=== PATIENT | male | born 1970 | race Caucasian/White ===

== ENCOUNTER 2018-04-21 11:35 | Emergency (ER) | payer OTHER ==
[2018-04-21 11:54] VITALS: RESP 18
[2018-04-21] MEDS ORDERED: HYDROcodone/APAP 5-325MG 1 EACH TAB PO STA (12:26)
[2018-04-21] MEDS ORDERED: DIPH,PERTUS(ACELL)TETVAC-LF 0.5 ML VIAL IM ONE (12:26)
--- NOTE | 2018-04-21 13:42 | XR ---
EXAMINATION TYPE: XR hand complete LT DATE OF EXAM: 04/21/2018 COMPARISON: None HISTORY: Fall off ladder, third digit pain TECHNIQUE: 3 views left hand FINDINGS: There is a dislocation of the middle phalanx on the proximal phalanx of the middle finger. Mild soft tissue swelling is present. There appears be a small avulsion which lies anterior to the di stal portion proximal phalanx of the middle finger. No additional fractures or dislocations are evident. IMPRESSION: 1. Dislocation of the middle phalanx on the proximal phalanx of the middle finger. There is an avuls ion of the anterior proximal portion of the middle phalanx middle finger with the fracture fragment a nterior to the distal portion proximal phalanx middle finger.
[2018-04-21] MEDS ORDERED: ceFAZolin 1,000 MG VIAL IM STA (13:46)
--- NOTE | 2018-04-21 14:32 | ED ---
General Adult HPI - General Chief complaint: Fall Stated complaint: fell off 4 ft ladder/finger injury Time Seen by Provider: 04/21/18 12:03 Source: patient, RN notes reviewed Mode of arrival: ambulatory Limitations: no limitations - History of Present Illness Initial comments: 47-year-old male presents to the emergency department for a chief complaint of left hand injury. Patient fell from a 3-4 foot ladder onto the left hand. Patient states he thinks his finger is broken. Patient states he cannot move it. He denies hitting his head or loss of consciousness. He does admit to falling on his right elbow but states pain is completely resolved since that time. He denies any back pain or neck pain. Patient has no other complaints at this time including shortness of breath, chest pain, abdominal pain, nausea or vomiting, headache, or visual changes. - Related Data Home Medications Medication Instructions Recorded Confirmed Vitamin B Complex 1 each PO DAILY 04/21/18 04/21/18 Previous Rx's Medication Instructions Recorded Cephalexin [Keflex] 500 mg PO Q6HR 5 Days cap 04/21/18 Allergies Allergy/AdvReac Type Severity Reaction Status Date / Time No Known Allergies Allergy Verified 04/21/18 11:49 Review of Systems ROS Statement: Those systems with pertinent positive or pertinent negative responses have been documented in the HPI. ROS Other: All systems not noted in ROS Statement are negative. Past Medical History Past Medical History: No Reported History History of Any Multi-Drug Resistant Organisms: None Reported Past Surgical History: No Surgical Hx Reported Past Psychological History: No Psychological Hx Reported Smoking Status: Former smoker Past Alcohol Use History: None Reported Past Drug Use History: None Reported General Exam Limitations: no limitations General appearance: alert, in no apparent distress Head exam: Present: atraumatic, normocephalic, normal inspection Eye exam: Present: normal appearance, PERRL, EOMI. Absent: scleral icterus, conjunctival injection, periorbital swelling ENT exam: Present: normal exam, mucous membranes moist Neck exam: Present: normal inspection, full ROM. Absent: tenderness, meningismus, lymphadenopathy Respiratory exam: Present: normal lung sounds bilaterally. Absent: respiratory distress, wheezes, rales, rhonchi, stridor Cardiovascular Exam: Present: regular rate, normal rhythm, normal heart sounds. Absent: systolic murmur, diastolic murmur, rubs, gallop, clicks Extremities exam: Present: tenderness (Tenderness noted to the PIP joint of the left third digit, especially on the palmar portion.), normal capillary refill ( Capillary refill less than 2 seconds in the left third digit. Radial pulse 2+ and left upper extremity, equal in the right upper extremity.), other ( Sensation intact in the left third extremity. Patient does appear to have a dislocation of the PIP joint of the left third finger. He also has a small 1.5 cm laceration on the palmar aspect of the left third digit middle phalanx.). Absent: full ROM (Patient is unable to move the PIP joint of the left third digit.), joint swelling (The significant swelling noted) Neurological exam: Present: alert, oriented X3, CN II-XII intact, normal gait Psychiatric exam: Present: normal affect, normal mood Course Vital Signs 04/21/18 04/21/18 11:51 15:00 Temperature 97.8 F 98.6 F Pulse Rate 74 64 Respiratory 18 18 Rate Blood Pressure 158/119 147/95 O2 Sat by Pulse 97 99 Oximetry Procedures - Laceration Laceration #1 Consent Obtained: verbal consent Indication: laceration Site: other (Finger, palmar aspect of the left third middle phalanx) Size (cm): 1 Description: linear Anesthetic Used: lidocaine 1% Anesthesia Technique: local infiltration Amount (mls): 3 Pre-repair: wound explored, irrigated extensively (With saline pressure irrigation), deep structures intact Type of Sutures: other ([place]) Size of Sutures: 5-0 Number of Sutures: 3 Technique: simple, interrupted Patient Tolerated Procedure: well, no complications - Orthopedic Joint Reduction Joint #1 Consent Obtained: verbal consent Joint Reduction Location: finger Analgesia: none Technique Used: traction/counter-traction Post-Reduction Neuro Exam: intact Post-Reduction Vascular Exam: intact Post Reduction X-Ray Obtained: No Splint Applied: Yes (finger splint) Patient Tolerated Procedure: well Medical Decision Making - Medical Decision Making 47-year-old male presents to the emergency department for a chief complaint of finger dislocation 1 hour. Patient was on a ladder when he fell off and injured his finger. Patient states he believes it is fractured. On exam patient does have what appears to be a dislocation of the left third PIP joint. Neurovascular intact. X-ray of the left hand shows dislocation of the middle phalanx on the proximal phalanx of the middle finger. There is avulsion of the anterior proximal portion of the middle phalanx middle finger with the fracture fragment anterior to the distal portion proximal phalanx middle finger. Finger was reduced without difficulty. Patient agreed to no analgesia for this. Neurovascular intact at that time. Patient now has full range of motion of the finger. Small laceration was repaired as well. Patient was given tetanus and Ancef in the emergency department as he does have a small laceration as well as fracture. He was educated him return precautions including those of infection. He was given a referral to orthopedics and I did discuss how important this was to follow-up as he may have an open fracture. Finger was splinted in a finger splint by RN. He was also given a prescription for oral antibiotics. He will follow up with orthopedics and primary care and return if he has any worsening symptoms. Disposition Clinical Impression: Finger dislocation, Finger fracture, Laceration Disposition: HOME SELF-CARE Condition: Good Instructions: Care For Your Stitches (ED), Laceration (ED), Finger Dislocation (ED) Additional Instructions: Please take Motrin for pain. If pain is severe take [place]. Please rest ice and elevate the finger. Use splint on finger until you see orthopedics. Keep the area clean. Monitor for signs of infection such as spreading or streaking redness. Follow-up with orthopedics in one to 2 days. Return to the emergency department if you have any worsening symptoms. Return in 7-10 days for suture removal. Prescriptions: Cephalexin [Keflex] 500 mg PO Q6HR 5 Days cap Is patient prescribed a controlled substance at d/c from ED?: No Referrals: Andria Onofre MD [Primary Care Provider] - 1-2 days Draell García MD [STAFF PHYSICIAN] - 1-2 days Time of Disposition: 14:31
[2018-04-21] MEDS ORDERED: ACET/COD 300 MG/30 MG STARTER PACK 6 TAB BTL PO STA (14:33)
[2018-04-21 15:07] VITALS: BP 147/95; PULSE 64; TEMP 98.6
== END 2018-04-21 15:02 | disposition home or self-care (01) ==
LOC: EC 11:35
DX: S62.613A Displaced fracture of proximal phalanx of left middle finger, initial encounter for closed fracture (principal); S61.213A Laceration without foreign body of left middle finger without damage to nail, initial encounter; Z23 Encounter for immunization; Z87.891 Personal history of nicotine dependence; W11.XXXA Fall on and from ladder, initial encounter; Y92.009 Unspecified place in unspecified non-institutional (private) residence as the place of occurrence of the external cause
CPT/HCPCS: 73130; 90715; 99283; 26725; 12001; 96372; 90471; J0690